=== PATIENT | female | born 1980 | race Caucasian/White ===

== ENCOUNTER 2017-01-26 16:05 | Emergency (ER) | payer BC ==
[2017-01-26 16:15] VITALS: BP 119/74; PULSE 68; TEMP 98.1; BMI 23.3
--- NOTE | 2017-01-26 16:38 | PDOC ---
History of Present Illness - General Chief Complaint: Pain, Acute Stated Complaint: KIDNEY STONES (REFERRED) Time Seen by Provider: 01/26/17 16:18 History Source: Patient Exam Limitations: No Limitations - History of Present Illness Initial Comments: This is a 36 yof with unremarkable PMH who presents c/o R>L flank pain for the past 2 days. The pain has been worsening since the onset and is now 8/10, radiating to the groin on both sides, and worsens with movement. She has tried taking Advil without relief. She went to Urgent Care just prior to coming here to the ED, reportedly had exam and urine results concerning for renal colic, and was instructed to come here. She notes recent strong smell to her urine, the feeling of inability to completely empty her bladder, and hot flashes. She denies any fever, chills, pain on urination, urinary frequency, blood in the urine, vaginal bleeding, vaginal discharge, nausea, vomiting, diarrhea, or constipation. Her last bowel movement was yesterday and it was normal. Past History - Past Medical History Allergies/Adverse Reactions: Allergies Allergy/AdvReac Type Severity Reaction Status Date / Time No Known Allergies Allergy Verified 01/26/17 16:11 Home Medications: Ambulatory Orders Pnv No.25/Iron Fumarate/FA/Dha [-1 Capsule] 1 each PO DAILY 03/02/12 Anemia: No Asthma: No Cancer: No Cardiac Disorders: No Diabetes: No HTN: No Seizures: No Thyroid Disease: No Other medical history: DENIES. - Reproductive History (#): 3 Para: 2 Therapeutic (s) & number: No Spontaneous : 0 - Suicide/Smoking/Psychosocial Hx Smoking Status: No Smoking History: Never smoked Have you smoked in the past 12 months: No Number of Cigarettes Smoked Daily: 0 Hx Alcohol Use: No Drug/Substance Use Hx: No Substance Use Type: None Hx Substance Use Treatment: No Review of Systems - Review of Systems Able to Perform ROS?: Yes Constitutional: Yes: Other (hot flashes). No: Chills, Fever, Unexplained wgt Loss HEENTM: No: Recent change in vision, Nose Congestion, Throat Pain Respiratory: No: Cough, Shortness of Breath Cardiac (ROS): No: Chest Pain, Palpitations ABD/GI: No: Constipated, Diarrhea, Nausea, Vomiting : Yes: Flank Pain, Other (strong urine smell, urinating small amounts). No: Burning, Dysuria, Discharge, Frequency, Hematuria, Incontinence Musculoskeletal: No: Back Pain, Neck Pain Integumentary: No: Bruising, Rash Neurological: No: Headache, Numbness, Paresthesia, Tingling, Weakness, Unsteady Gait, Dizziness Endocrine: No: Unexplained Weight Gain, Unexplained Weight Loss *Physical Exam - Vital Signs Last Vital Signs Temp Pulse Resp BP Pulse Ox 98.1 F 68 19 119/74 100 01/26/17 16:11 01/26/17 16:11 01/26/17 16:11 01/26/17 16:11 01/26/17 16:11 - Physical Exam General Appearance: Yes: Nourished, Appropriately Dressed, Mild Distress, Other (appears uncomfortable, not writhing but having difficulty getting comfortable and winces in pain when repositioning, nontoxic appearing) HEENT: positive: EOMI, Normal Voice, Hearing Grossly Normal. negative: Scleral Icterus (R), Scleral Icterus (L), Nasal Congestion Neck: positive: Trachea midline, Supple. negative: Tender, Rigid Respiratory/Chest: positive: Lungs Clear, Normal Breath Sounds. negative: Respiratory Distress, Crackles, Rhonchi, Stridor, Wheezing Cardiovascular: positive: Regular Rhythm, Regular Rate. negative: Murmur Gastrointestinal/Abdominal: positive: Normal Bowel Sounds, Tender (multiple points of moderate tenderness including RUQ with +Blancas's sign, RLQ with tenderness at McBurney's point, positive Rovsing's sign), Flat, Soft. negative : Organomegaly, Pulsatile Mass, Guarding Musculoskeletal: positive: Normal Inspection, CVA Tenderness (R>L). negative: Decreased Range of Motion, Vertebral Tenderness Extremity: positive: Normal Capillary Refill, Normal Inspection, Normal Range of Motion. negative: Tender, Cyanosis Integumentary: positive: Normal Color, Dry, Warm. negative: Erythema, Rash, Bruising Neurologic: positive: stock wetter II-XII NML intact, Fully Oriented, Alert, Normal Mood/ Affect, Normal Response, Motor Strength 5/5, Finger to Nose (normal). negative : Facial Droop, Numbness, Sensory Deficit, Confused, Disoriented ED Treatment Course - LABORATORY CBC & Chemistry Diagram: 01/26/17 16:45 01/26/17 16:45 Medical Decision Making - Medical Decision Making 36 yof presents from with R>L flank pain for the past two days. DDX includes obstructing renal stone, UTI/pyelonephritis, appendicitis, cholecystitis, PUD, pancreatitis. Ordered is CBCD, CMP, Mg, Phos, lipase, UA cx, U-preg, Spiral CT. UA unremarkable, U-preg negative. T. bili is slightly elevated but otherwise CBCD and CMP are unremarkable. Pt's case is signed out to the oncoming ED team awaiting Spiral CT results.
[2017-01-26] MEDS ORDERED: oxyCODONE HCL 5 MG TABLET PO ONE (16:39)
[2017-01-26] MEDS ORDERED: SODIUM CHLORIDE 1,000 ML IV STA (16:41)
[2017-01-26] MEDS ORDERED: oxyCODONE HCL 5 MG TABLET ONE (16:51)
[2017-01-26 16:58] LABS: BASOPHIL 0.6 % (0-2.0); EOSINOPHIL 1.8 % (0-4.5); MCH 28.3 pg (25.7-33.7); MCHC 33.9 g/dl (32.0-36.0); MEAN CELL VOLUME 83.5 fl (80-96); MEAN PLT VOLUME 8.7 fl (7.5-11.1); NEUTROPHILS 64.9 % (42.8-82.8); PLATELET COUNT 260 K/MM3 (134-434); RDW 13.2 % (11.6-15.6); WHITE BLOOD COUNT 6.2 K/mm3 (4.0-10.0)
[2017-01-26 17:24] LABS: URINE APPEARANCE CLEAR; URINE BILIRUBIN NEGATIVE (NEGATIVE); URINE BLOOD NEGATIVE (NEGATIVE); URINE COLOR LTYELLOW; URINE GLUCOSE (UA) NEGATIVE (NEGATIVE); URINE KETONE NEGATIVE (NEGATIVE); URINE LEUK ESTERASE NEGATIVE (NEGATIVE); URINE NITRITE NEGATIVE (NEGATIVE); URINE PROTEIN NEGATIVE (NEGATIVE); URINE UROBILINOGEN NEGATIVE mg/dL (0.2-1.0)
[2017-01-26 17:28] LABS: ALBUMIN 4.3 g/dl (3.4-5.0); ALK PHOS 43 U/L (45-117); ANION GAP 5 (8-16); BILIRUBIN,TOTAL 1.6 mg/dL (0.2-1.0); CALCIUM 9.2 mg/dL (8.5-10.1); CO2 28 mmol/L (21-32); CREATININE 0.5 mg/dL (0.55-1.02); GLUCOSE,RANDOM 80 mg/dL (74-106); PHOSPHOROUS 3.4 mg/dL (2.5-4.9); SGOT/AST 10 U/L (15-37); SGPT/ALT 23 U/L (12-78); TOT PROT 7.4 g/dl (6.4-8.2)
--- NOTE | 2017-01-26 18:17 | PDOC ---
Attending Attestation - Resident Resident Name: Latonia Lan - ED Attending Attestation I have performed the following: I have examined & evaluated the patient, The case was reviewed & discussed with the resident, I agree w/resident's findings & plan, Exceptions are as noted - HPI HPI: 01/26/17 18:12 36 yo F presenting from outpatient office due to bilateral flank pain No fevers or chills Possible urinary symptoms No gross hematuria - Physicial Exam PE: 01/26/17 18:16 RRR CTA B/L Bilateral CVA TTP Lower abd tenderness No guarding or rebound 01/26/17 18:16 - Medical Decision Making 01/26/17 18:16 Pt with diffuse abdominal pain complaints Will do Labs HCG CT abd and pelvis Will re assess 01/26/17 18:17 Laboratory Tests 01/26/17 01/26/17 01/26/17 16:45 16:45 16:50 WBC 6.2 D Hgb 13.3 Hct 39.0 Plt Count 260 D Neutrophils % 64.9 Lymphocytes % 24.2 D BUN 15 D Creatinine 0.5 L Urine Blood Negative Urine Nitrite Negative Urine HCG, Qual Negative
[2017-01-26] MEDS ORDERED: KETOROLAC TROMETHAMINE 30 MG/1 ML VIAL IVPUSH ONE (20:58)
[2017-01-26] MEDS ORDERED: KETOROLAC TROMETHAMINE 30 MG/1 ML VIAL ONE (21:12)
[2017-01-26] MEDS ORDERED: valACYclovir HCL 1000 MG TABLET PO ONE (21:26)
--- NOTE | 2017-01-26 21:32 | PDOC ---
*Physical Exam - Vital Signs Last Vital Signs Temp Pulse Resp BP Pulse Ox 98.1 F 68 19 119/74 100 01/26/17 16:11 01/26/17 16:11 01/26/17 16:11 01/26/17 16:11 01/26/17 16:11 ED Treatment Course - LABORATORY CBC & Chemistry Diagram: 01/26/17 16:45 01/26/17 16:45 - ADDITIONAL ORDERS Additional order review: Laboratory Results 01/26/17 01/26/17 01/26/17 16:50 16:45 16:45 Sodium 138 Potassium 4.0 Chloride 105 Carbon Dioxide 28 Anion Gap 5 L BUN 15 D Creatinine 0.5 L Creat Clearance w eGFR > 60 Random Glucose 80 Calcium 9.2 Phosphorus 3.4 Magnesium 2.0 Total Bilirubin 1.6 H D AST 10 L D ALT 23 Alkaline Phosphatase 43 L D Total Protein 7.4 Albumin 4.3 Lipase 116 Urine Color Ltyellow Urine Appearance Clear Urine pH 5.0 Ur Specific [place] 1.025 Urine Protein Negative Urine Glucose (UA) Negative Urine Ketones Negative Urine Blood Negative Urine Nitrite Negative Urine Bilirubin Negative Urine Urobilinogen Negative Urine HCG, Qual Negative 01/26/17 16:45 RBC 4.68 MCV 83.5 MCHC 33.9 RDW 13.2 MPV 8.7 Neutrophils % 64.9 Lymphocytes % 24.2 D Monocytes % 8.5 Eosinophils % 1.8 Basophils % 0.6 - Medications Given in the ED: ED Medications Discontinued Medications Generic Name Dose Route Start Last Admin Trade Name Freq PRN Reason Stop Dose Admin Sodium Chloride 1,000 mls @ 1,000 mls/hr 01/26/17 16:41 01/26/17 16:57 Normal Saline - IV 01/26/17 17:40 1,000 mls/hr ASDIR STA Administration Oxycodone HCl 5 mg 01/26/17 16:39 01/26/17 16:57 Roxicodone - PO 01/26/17 16:40 5 mg ONCE ONE Administration Medical Decision Making - Medical Decision Making 01/26/17 21:11 Patient was signed out to me by Dr. Lan. Pending CT abd/pelvis results. Results are negative for acute process. Patient is still in pain. CVA tenderness. UA negative. CBC WNL. CMP WNL. Will order toradol and reassess. 01/26/17 21:45 Attending physician believes this is a shingles and we will prescribe acyclovir. Patient is ready for discharge. *DC/Admit/Observation/Transfer Diagnosis at time of Disposition: Flank pain - Discharge Dispostion Disposition: HOME Condition at time of disposition: Stable Admit: No - Prescriptions Prescriptions: Oxycodone HCl/Acetaminophen [Percocet 5/325 -] 1 tab PO Q6H #20 tablet MDD 4 Oxycodone HCl/Acetaminophen [Percocet 5/325 -] 1 tab PO Q6H #20 tablet MDD 4 Ketorolac Tromethamine [Toradol] 10 mg PO TID #15 tablet Valacyclovir HCl [Valtrex] 1,000 mg PO TID #21 tablet - Patient Instructions Additional Instructions: Please return to the ER if symptoms persist, worsen, or if new symptoms arise. Please follow up with your primary care doctor on Saturday. Please take your medications as prescribed. Print Language: MOROCCAN
== END 2017-01-26 22:08 | disposition home or self-care (01) ==
LOC: JER 16:05
PROC: 3E0337Z Introduction of Electrolytic and Water Balance Substance into Peripheral Vein, Percutaneous Approach (ICD-10-PCS; principal; 2017-01-26)
PROC: 3E0333Z Introduction of Anti-inflammatory into Peripheral Vein, Percutaneous Approach (ICD-10-PCS; 2017-01-26)
DX: B02.9 Zoster without complications (principal)
CPT/HCPCS: 36415; 74176; 80053; 81003; 83690; 83735; 84100; 84703; 85025; 87086; 99282-25

== ENCOUNTER 2018-04-02 09:37 | Day surgery (SDC) | payer BC ==
[2018-04-02 09:56] VITALS: TEMP 98.4; BMI 19.8
[2018-04-02] MEDS ORDERED: PROPOFOL 20 ML ONE (11:34)
[2018-04-02 13:05] VITALS: BP 110/66; PULSE 66
--- NOTE | 2018-04-07 14:37 | PATH ---
Surgical Pathology Report Patient Name: DAVID PERALTA [facility]. Rec. #: [id number] /Age/Gender: 1980 (Age: 37) / F Account: [id number] Location: [facility] Taken: 04/02/2018 Received: 04/02/2018 Reported: 04/07/2018 Physicians: Mell Brewer M.D. Specimen(s) Received A: BX DUODENUM 2ND PORTION B: BX ANTRUM C: BX GE JUNCTION Clinical History Dyspepsia Postoperative diagnosis: Gastritis Final Diagnosis A. SECOND PORTION OF DUODENUM, BIOPSY: DUODENAL MUCOSA WITH NO PATHOLOGIC FINDINGS. B. ANTRUM, BIOPSY: MODERATE CHRONIC ACTIVE GASTRITIS. IMMUNOSTAIN SHOWS NUMEROUS H PYLORI ORGANISMS. C. GE JUNCTION, BIOPSY: ESOPHAGOGASTRIC JUNCTIONAL (SQUAMOCOLUMNAR) MUCOSA SHOWING MODERATE CHRONIC INFLAMMATION. H. PYLORI ORGANISMS ARE PRESENT. NEGATIVE FOR INTESTINAL METAPLASIA. Electronically Signed Donya Gallegos M.D. Gross Description A. Received in formalin, labeled "second portion of duodenum" is a rios, irregular portion of soft tissue measuring 0.4 cm. in greatest dimension. The specimen is submitted in toto in one cassette. B. Received in formalin, labeled "antrum" is a rios, irregular portion of soft tissue measuring 0.4 cm. in greatest dimension. The specimen is submitted in toto in one cassette. C. Received in formalin, labeled "GE junction" is a rios, irregular portion of soft tissue measuring 0.3 cm. in greatest dimension. The specimen is submitted in toto in one cassette. 04/03/2018 saudi04/03/2018
== END 2018-04-02 12:45 | disposition home or self-care (01) ==
LOC: FASU-ENDO 09:37
PROVIDERS: ATTEND Internal Medicine Gastroenterology
PROC: 0DB78ZX Excision of Stomach, Pylorus, Via Natural or Artificial Opening Endoscopic, Diagnostic (ICD-10-PCS; 2018-04-02)
PROC: 0DB48ZX Excision of Esophagogastric Junction, Via Natural or Artificial Opening Endoscopic, Diagnostic (ICD-10-PCS; 2018-04-02)
PROC: 0DB98ZX Excision of Duodenum, Via Natural or Artificial Opening Endoscopic, Diagnostic (ICD-10-PCS; principal; 2018-04-02 11:15)
DX: K29.60 Other gastritis without bleeding (principal); B96.81 Helicobacter pylori [H. pylori] as the cause of diseases classified elsewhere
CPT/HCPCS: 84703; 88305-TC; 88342-TC

== ENCOUNTER 2020-11-11 13:27 | Emergency (ER) | payer BC ==
[2020-11-11 13:37] VITALS: BMI 24.1
[2020-11-11] MEDS ORDERED: ACETAMINOPHEN 1000 MG/100 ML VIAL (NON FORMULARY) IVPB ONE (14:25)
[2020-11-11] MEDS ORDERED: SODIUM CHLORIDE 0.9% 500 ML INFUS.BAG IV ONE (14:25)
[2020-11-11 15:33] LABS: HCG,QUALITATIVE URINE Positive; PH,URINE 6.5 (5.0-8.0); URINE APPEARANCE CLEAR; URINE BILIRUBIN NEGATIVE (NEGATIVE); URINE COLOR YELLOW; URINE GLUCOSE (UA) NEGATIVE (NEGATIVE); URINE KETONE NEGATIVE (NEGATIVE); URINE LEUK ESTERASE NEGATIVE (NEGATIVE); URINE NITRITE NEGATIVE (NEGATIVE); URINE PROTEIN NEGATIVE (NEGATIVE)
[2020-11-11] MEDS ORDERED: ACETAMINOPHEN INJECTION 100 ML IVPB ONE (15:45)
[2020-11-11 16:32] LABS: BASO % 0.6 % (0-2.0); EOS % 1.2 % (0-4.5); HEMATOCRIT 40.4 % (32.4-45.2); HEMOGLOBIN 13.9 GM/dL (10.7-15.3); LYMPH % 20.7 % (8-40); MCH 28.7 pg (25.7-33.7); MCHC 34.3 g/dl (32.0-36.0); MEAN CELL VOLUME 83.7 fl (80-96); MEAN PLT VOLUME 8.3 fl (7.5-11.1); MONO % 7.7 % (3.8-10.2); NEUT % 69.8 % (42.8-82.8); PLATELET COUNT 307 10^3/uL (134-434); RBC 4.83 M/mm3 (3.60-5.2); RDW 13.6 % (11.6-15.6); WHITE BLOOD COUNT 7.9 K/mm3 (4.0-10.0)
[2020-11-11 16:52] LABS: CALCIUM 9.2 mg/dL (8.5-10.1)
[2020-11-11 16:53] LABS: ALBUMIN 4.5 g/dl (3.4-5.0); BLOOD UREA NITROGEN 10.3 mg/dL (7-18)
[2020-11-11 16:56] LABS: CREATININE 0.5 mg/dL (0.55-1.3)
[2020-11-11 16:58] LABS: BILIRUBIN,TOTAL 1.2 mg/dL (0.2-1); TOT PROT 7.9 g/dl (6.4-8.2)
[2020-11-11 18:12] VITALS: BP 109/73; PULSE 82; TEMP 98.3
== END 2020-11-11 18:11 | disposition home or self-care (01) ==
LOC: JER 13:27
PROC: 3E0333Z Introduction of Anti-inflammatory into Peripheral Vein, Percutaneous Approach (ICD-10-PCS; principal; 2020-11-11)
DX: O26.891 Other specified pregnancy related conditions, first trimester (principal); R10.9 Unspecified abdominal pain; Z3A.01 Less than 8 weeks gestation of pregnancy
CPT/HCPCS: 36415; 76817-TC; 80053; 81003; 84702; 84703; 85025; 87086; 87186; 99284-25; J0131

== ENCOUNTER 2020-12-12 04:45 | Day surgery (SDC) | payer BC ==
[2020-12-09 08:13] VITALS: BMI 22.4
[2020-12-12] MEDS ORDERED: IBUPROFEN 800 MG/8 ML IJ IVPB PRN (08:55)
[2020-12-12] MEDS ORDERED: oxyCODONE HCL 5 MG TABLET PO PRN (08:55)
[2020-12-12] MEDS ORDERED: IBUPROFEN 600 MG TABLET (FP) PO PRN (08:55)
[2020-12-12] MEDS ORDERED: ONDANSETRON 4 MG/2 ML VIAL IVPUSH PRN (08:55)
[2020-12-12] MEDS ORDERED: ELECTROLYTE-148 SOLN 1,000 ML IV SCH (09:00)
[2020-12-12] MEDS ORDERED: LACTATED RINGERS SOLUTION 1,000 ML IV SCH (10:00)
[2020-12-12 11:03] VITALS: BP 116/69; PULSE 75; TEMP 98.9
== END 2020-12-12 11:20 | disposition home or self-care (01) ==
LOC: JASU-SURG 04:45
PROVIDERS: ATTEND Obstetrics & Gynecology
PROC: 10D17ZZ Extraction of Products of Conception, Retained, Via Natural or Artificial Opening (ICD-10-PCS; principal; 2020-12-12 08:00)
DX: O02.1 Missed abortion (principal)
CPT/HCPCS: 88305-TC; 94760